=== PATIENT | male | born 1990 | race Caucasian/White ===

== ENCOUNTER 2020-07-16 02:45 | Emergency (ER) | payer OTHER, SELFPAY ==
[2020-07-16 02:30] VITALS: BP 128/86; PULSE 98; RESP 16; TEMP 36.8; O2SAT 97; BMI 23.7
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
--- NOTE | 2020-07-16 03:21 | PC.NURSE ---
STEVE called back and requested another office. they stated pt was screaming and combative
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
[2020-07-16 03:30] VITALS: BP 119/73; PULSE 91; RESP 16; O2SAT 97
--- NOTE | 2020-07-16 04:06 | PC.NURSE ---
pt refused any further vitals at this time. pt stated i have PTSD and cant have that anymore
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
[2020-07-16 04:48] VITALS: BP 126/85; PULSE 89; RESP 15; TEMP -17.7; TEMP 0; O2SAT 97
== END 2020-07-16 04:50 | disposition home or self-care (01) ==
PROVIDERS: Emergency Provider Emergency Medicine; PCP Family Medicine
DX: S01.81XA Laceration without foreign body of other part of head, initial encounter (principal); S00.83XA Contusion of other part of head, initial encounter; S09.92XA Unspecified injury of nose, initial encounter; Y04.2XXA Assault by strike against or bumped into by another person, initial encounter; Y92.414 Local residential or business street as the place of occurrence of the external cause; Z88.0 Allergy status to penicillin; F17.210 Nicotine dependence, cigarettes, uncomplicated
CPT/HCPCS: 70450; 72125; 99283

== ENCOUNTER 2020-07-23 23:04 | Emergency (ER) | payer OTHER, SELFPAY ==
[2020-07-23 23:05] VITALS: BP 158/101; PULSE 121; RESP 16; TEMP 36.8; O2SAT 99; BMI 23.0
--- NOTE | 2020-07-23 23:07 | ECG_ITS ---
APPROVED REPORT Exam: Resting ECG HR:81 bpm ECG Measurements Heart Rate [address] 156 P 80 QRSd 98 QRS 61 QT 342 T 63 QTc 397 Conclusion Normal sinus rhythm Normal ECG Electronically signed by : Sahil Crespo, 07/26/2020 19:34:00
[2020-07-23 23:35] VITALS: BP 115/82; PULSE 89; RESP 17; O2SAT 100
[2020-07-23 23:49] LABS: Microscopic, Urine URINE MICROSCOPIC (MICROSCOPIC)
[2020-07-23 23:53] LABS: Basophils # 0.1 K/mm3 (0-0.2); Basophils % 0.9 % (0.1-2.0); Eosinophils # 0.2 K/mm3 (0.0-0.4); Eosinophils % 1.5 % (0.1-12.0); Hematocrit 47.8 % (42.0-52.0); Hemoglobin 15.7 g/dL (14.1-18.0); Lymphocytes # 4.9 K/mm3 (0.7-4.5); Lymphocytes % 30.2 % (10-50); Mean Corpuscular HGB Conc 32.7 g/dL (31.8-35.4); Mean Corpuscular Hemoglobin 29.7 pg (27.0-31.2); Mean Corpuscular Volume 90.9 fl (80-94); Monocytes # 0.9 K/mm3 (0.1-1.0); Monocytes % 5.3 % (1.7-9.3); Neutrophils % 62.1 % (37.0-80.0); Platelet Count 369 K/mm3 (142-424); Red Blood Count 5.26 M/mm3 (4.60-6.20); Red Cell Distribution Width 13.6 % (11.5-17.5); White Blood Count 16.2 K/mm3 (4.8-10.8)
[2020-07-23 23:55] LABS: Appearance,Urine CLEAR (Clear); Bilirubin,Urine Negative (Negative); Blood, Urine Negative (Negative); Color,Urine YELLOW (Yellow); Glucose,Urine (UA) Negative (Negative); Ketones,Urine Negative (Negative); Leukocyte Esterase,Urine Negative (Negative); Nitrate,Urine Negative (Negative); PH,Urine 5.5 (5.0-8.5); Protein,Urine Negative (Negative); Specific Gravity, Urine >= 1.030 (1.005-1.030); Urobilinogen,Urine 0.2 EU/dl (0.2)
[2020-07-23 23:56] LABS: Chloride 98 mmol/L (98-107); Sodium 141 mmol/L (136-145)
[2020-07-23 23:58] LABS: Alanine Aminotransferase 22 U/L (12-78); Aspartate Amino Transferase 23 U/L (17-59); Blood Urea Nitrogen 18 mg/dl (9-20); Creatinine Clearance Estimated 105 mL/min (50-200); Estimated Glomerular Filt Rate 79 ml/min (>60); GFR (African American) 96 ML/MIN (>60)
--- NOTE | 2020-07-23 23:58 | HMH.EDOD ---
ED Disposition Clinical Impression: Acute delirium Disposition: Home, Self-Care Condition on Discharge: Good Instructions: DI for Substance Use Disorder Additional Instructions: see pcp for follow up Referrals: Neftaly Salazar MD [Primary Care Provider] - - Critical Care Critical Care Time: No Attestation: On 07/23/20, the high probability of a clinically significant, sudden or life threatening deterioration of the following system(s) required my full and direct attention, intervention and personal management. The time I documented below is in addition to time spent performing reported procedures but includes the following listed in this critical care notation. Medical Decision Making - Medical Records Medical records reviewed: Yes: I reviewed the patient's medical records. - Brian Inquiry Pt receiving controlled substance: No Vital Signs: 07/23/20 23:05 07/23/20 23:35 07/24/20 00:05 Temperature 98.2 F Temperature Source Oral Pulse Rate [Left Radial] 121 H 89 82 Respiratory Rate 16 17 15 Blood Pressure [Right Arm] 158/101 H 115/82 121/78 Blood Pressure Mean [Right Arm] 120 93 92 Blood Pressure Source [Right Arm] Automatic Cuff Automatic Cuff Automatic Cuff Blood Pressure Position [Right Arm] Sitting Sitting Sitting 02 Sat by Pulse Oximetry 99 100 99 Oxygen Delivery Method Room Air Room Air Room Air 07/24/20 00:35 Temperature Temperature Source Pulse Rate [Left Radial] 80 Respiratory Rate 16 Blood Pressure [Right Arm] 118/76 Blood Pressure Mean [Right Arm] 90 Blood Pressure Source [Right Arm] Automatic Cuff Blood Pressure Position [Right Arm] Sitting 02 Sat by Pulse Oximetry 97 Oxygen Delivery Method Room Air - Lab Data Lab results reviewed: Yes: I reviewed the patient's lab results. Lab Results 07/23/20 23:05: Urine Color Yellow, Urine Appearance Clear, Urine pH 5.5, Ur Specific [place] >= 1.030, Urine Protein Negative, Urine Glucose (UA) Negative, Urine Ketones Negative, Urine Blood Negative, Urine Nitrate Negative, Urine Bilirubin Negative, Urine Urobilinogen 0.2, Ur Leukocyte Esterase Negative, Urine WBC 3-5, Urine Bacteria 1+, Urine Mucus 2+ 07/23/20 23:05: Urine Opiates Screen Negative, Urine Methadone Screen Negative, Ur Barbituates Screen Negative, Ur Phencyclidine Scrn Negative, Ur Amphetamines Screen Negative, U Benzodiazepines Scrn Negative, Urine Cocaine Screen Negative, U Marijuana (THC) Screen Positive H 07/23/20 23:12: WBC 16.2 H, RBC 5.26, Hgb 15.7, Hct 47.8, MCV 90.9, MCH 29.7, MCHC 32.7, RDW 13.6, Plt Count 369, MPV 8.0, Neut % (Auto) 62.1, Lymph % (Auto) 30.2, [place] % (Auto) 5.3, Eos % (Auto) 1.5, Baso % (Auto) 0.9, Neut # (Auto) 10.0 H, Lymph # (Auto) 4.9 H, [place] # (Auto) 0.9, Eos # (Auto) 0.2, Baso # (Auto) 0.1 07/23/20 23:12: Sodium 141, Potassium 4.0, Chloride 98, Carbon Dioxide 33 H, Anion Gap 14.0, BUN 18, Creatinine 1.10, Estimated Creat Clear 105, Estimated GFR 79, Est GFR ( Amer) 96, Glucose 136 H, Calcium 9.6, Total Bilirubin 0.6, AST 23, ALT 22, Alkaline Phosphatase 86, Troponin I < 0.01, Total Protein 9.1 H, Albumin 5.3 H, Globulin 3.8 H, Albumin/Globulin Ratio 1.4, Salicylates < 1.0 L, Acetaminophen < 10 L 07/23/20 23:12: Plasma/Serum Alcohol < 10 Result diagrams: 07/23/20 23:12 07/23/20 23:12 Orders (Tests/Meds): ORDERS Category Date Time Status XR chest 2V Stat Exams 07/24/20 00:15 Stop Req Complete Blood Count Auto Diff Stat Lab 07/23/20 23:12 Results Troponin I Q3 Lab 07/24/20 03:00 Ordered Troponin I Q3 Lab 07/24/20 06:00 Ordered - ECG Data Tracing #1 Normal Sinus Rhythm: Yes Ischemic changes: non-specific ST-T wave changes Medical Decision Narrative: pt with possible ingestion of drug and is doing better at this time with stable gait and vs and labs ok Overdose HPI - General Chief Complaint: Overdose Stated Complaint: overdose Time Seen by Provider: 07/23/20 23:10 Mode of Arrival: Wheelchair Source of Inform
[2020-07-23 23:59] LABS: Albumin Level 5.3 g/dl (3.5-5.0); Albumin/Globulin Ratio 1.4 (1.1-1.8); Alkaline Phosphatase 86 U/L (38-126); Bilirubin,Total 0.6 mg/dl (0.2-1.3); Calcium 9.6 mg/dl (8.4-10.2); Carbon Dioxide 33 mmol/L (22.0-30.0); Globulin 3.8 g/dL (1.3-3.2); Glucose 136 mg/dl (74-100); Total Protein,Serum 9.1 g/dl (6.3-8.2)
--- NOTE | 2020-07-24 00:01 | PC.NURSE ---
pt ambulated to the bathroom independently. pt is alert and oriented at this time.
[2020-07-24 00:05] VITALS: BP 121/78; PULSE 82; RESP 15; O2SAT 99
[2020-07-24 00:06] LABS: Acetaminophen < 10 ug/ml (10-30); Ethyl Alcohol < 10 mg/dl (0-10); Salicylate < 1.0 mg/dL (2.0-20.0)
[2020-07-24 00:06] LABS: Benzodiazepines Screen,Urine Negative ng/ml (<200)
[2020-07-24 00:07] LABS: Amphetamine/Metha Screen,Urine Negative ng/ml (<1000)
[2020-07-24 00:07] LABS: MANUAL DIFFERENTIAL MANUAL DIFFERENTIAL (MANUAL DIFF)
[2020-07-24 00:08] LABS: Barbiturates Screen,Urine Negative ng/ml (<200); Cannabinoid Screen,Urine Positive ng/ml (<50)
[2020-07-24 00:09] LABS: Cocaine Screen,Urine Negative ng/ml (<300)
[2020-07-24 00:10] LABS: Methadone Screen,Urine Negative ng/ml (<300); Opiate Screen,Urine Negative ng/ml (<300)
[2020-07-24 00:11] LABS: Troponin I < 0.01 ng/ml (0.00-0.034)
[2020-07-24 00:11] LABS: Phencyclidine Screen,Urine Negative ng/ml (<25)
--- NOTE | 2020-07-24 00:13 | PC.NURSE ---
Dr Ledesma attempting to assess patient, pt not ready to be assessed, refusing to get off phone.
[2020-07-24 00:29] LABS: Bacteria,Urine 1+ /lpf; Mucus,Urine 2+ /lpf
[2020-07-24 00:35] VITALS: BP 118/76; PULSE 80; RESP 16; O2SAT 97
[2020-07-24 01:03] VITALS: BP 110/63; PULSE 72; RESP 14; TEMP 36.8; O2SAT 94
[2020-07-24 01:11] LABS: Eosinophils % 2 % (0-3); Lymphocytes % 38 % (10-50); Neutrophils % 59 % (42-76); Total Cells Counted 100
[2020-07-24 01:12] LABS: Platelet Estimate Normal; RBC Morphology Normal
== END 2020-07-24 01:07 | disposition home or self-care (01) ==
PROVIDERS: Emergency Provider Emergency Medicine; PCP Family Medicine
DX: T50.901A Poisoning by unspecified drugs, medicaments and biological substances, accidental (unintentional), initial encounter (principal); R41.0 Disorientation, unspecified; F17.210 Nicotine dependence, cigarettes, uncomplicated; Z88.0 Allergy status to penicillin; R03.0 Elevated blood-pressure reading, without diagnosis of hypertension
CPT/HCPCS: 80053; 80305; 80329; 81001; 84484; 85007; 85025; 93005; 99283

== ENCOUNTER 2020-08-21 17:10 | Emergency (ER) | payer OTHER, SELFPAY ==
--- NOTE | 2020-08-21 17:54 | HMH.EDUTC ---
[facility] [place] Disposition Clinical Impression: Exposure to COVID-19 virus Disposition: Home, Self-Care Condition on Discharge: Good Instructions: Preventing the Spread of Coronavirus Discharge Instructions Additional Instructions: Drink plenty of fluids. Take tylenol for pain or fever. Return if you begin to have difficulty breathing. Follow up with your regular doctor. GO TO THE ER FOR ANY WORSENING SYMPTOMS Referrals: Neftaly Salazar MD [Primary Care Provider] - Time of Disposition: 17:55 Medical Decision Making - Medical Records Medical records reviewed: No: I reviewed the patient's medical records. - Brian Inquiry Pt receiving controlled substance: No Vital Signs: 08/21/20 17:58 08/21/20 18:23 Temperature 98.4 F 98.1 F Temperature Source Oral Oral Pulse Rate 84 Pulse Rate [Right] 88 Respiratory Rate 16 16 Blood Pressure 120/69 Blood Pressure [Right Arm] 121/75 Blood Pressure Mean [Right Arm] 90 Blood Pressure Source [Right Arm] Automatic Cuff Blood Pressure Position [Right Arm] Sitting 02 Sat by Pulse Oximetry 98 Oxygen Delivery Method Room Air Orders (Tests/Meds): ORDERS Category Date Time Status Covid-19 Nasal PCR ([facility]) Routine Lab 08/21/20 17:45 Received [facility] [place] HPI - General Stated complaint: covid test Time Seen by Provider: 08/21/20 17:54 - History of Present Illness Provider Complaint: He states that he was exposed to covid 2 days ago. He denies any symptoms so far. - Related Data Previous Rx's Medication Instructions Recorded Cyclobenzaprine HCl [Flexeril 10mg 10 mg PO TID PRN #20 tablet 03/30/18 tablet] Etodolac [Etodolac 200mg Cap] 200 mg PO Q6HP PRN #20 cap 03/30/18 Allergies Allergy/AdvReac Type Severity Reaction Status Date / Time Penicillins Allergy Verified 08/21/20 18:02 [facility] History - Hepatitis A Screen Attestation statement:: This patient has been screened for Hepatitis A risk factors. I have reviewed the patient's past medical history: Yes - Social History Smoking Status: Current every day smoker Tobacco Type: cigarettes Alcohol Intake: never ROS Obtained: Yes All systems reviewed & no additional complaints - Constitutional Constitutional: Reports system reviewed and no additional complaints, except as docu - Eyes Eyes: Reports system reviewed and no additional complaints, except as docu - ENT Ears, Nose, Mouth, and Throat: Reports system reviewed and no additional complaints, except as docu - Cardiovascular Cardiovascular: Reports system reviewed and no additional complaints, except as docu - Respiratory Respiratory: Reports system reviewed and no additional complaints, except as docu - Gastrointestinal Gastrointestingal: Reports: system reviewed and no additional complaints, except as docu Physical Exam - General General appearance: alert, in no apparent distress - Head Head exam: atraumatic, normocephalic, normal inspection - Eye Eye exam: Present: normal appearance, PERRL, EOMI - ENT ENT exam: Present: normal exam, normal oropharynx, mucous membranes moist, TM's normal bilaterally, normal external ear exam - Neck Neck exam: Present: normal inspection, full ROM, trachea midline. Absent: meningismus, lymphadenopathy - Chest Chest inspection: Present: normal inspection, symmetric chest wall rise. Absent: tenderness - Respiratory Respiratory exam: Present: normal lung sounds bilaterally. Absent: respiratory distress - Cardiovascular Cardiovascular exam: Present: regular rate, normal rhythm. Absent: JVD - Abdominal Exam Abdominal exam: Present: soft, normal bowel sounds. Absent: distention, tenderness, guarding - Extremities Exam Extremities exam: Present: normal inspection, full ROM, normal capillary refill. Absent: calf tenderness - Back Exam Back exam: Present: normal inspection. Absent: tenderness - Neurological Exam Neurological exam: Present: alert, oriented
[2020-08-21 17:58] VITALS: BP 121/75; PULSE 88; RESP 16; TEMP 36.9; O2SAT 98; BMI 23.7
[2020-08-21 18:23] VITALS: BP 120/69; PULSE 84; RESP 16; TEMP 36.7
== END 2020-08-21 18:24 | disposition home or self-care (01) ==
PROVIDERS: Emergency Provider Nurse Practitioner Family; PCP Family Medicine
DX: Z20.822 Contact with and (suspected) exposure to COVID-19 (principal); Z88.0 Allergy status to penicillin; F17.210 Nicotine dependence, cigarettes, uncomplicated
CPT/HCPCS: 99202; G0463; U0003

== ENCOUNTER 2021-04-28 23:16 | Emergency (ER) | payer OTHER, SELFPAY ==
[2021-04-28 23:34] VITALS: BP 128/70; PULSE 79; RESP 18; TEMP 36.7; O2SAT 99; BMI 25.1
--- NOTE | 2021-04-28 23:37 | ECG_ITS ---
APPROVED REPORT Exam: Resting ECG HR:72 bpm ECG Measurements Heart Rate 72 AXES [place] 176 P 68 QRSd 96 QRS 71 QT 368 T 70 QTc 402 Conclusion Normal sinus rhythm RSR' or QR pattern in V1 suggests right ventricular conduction delay Borderline ECG Electronically signed by : Sahil Crespo MD 05/01/2021 17:30:46
[2021-04-29 00:01] LABS: Alanine Aminotransferase 14 U/L (12-78); Albumin Level 4.2 g/dl (3.5-5.0); Albumin/Globulin Ratio 1.4 (1.1-1.8); Alkaline Phosphatase 84 U/L (38-126); Anion Gap 9.3 mEq/L (5-15); Aspartate Amino Transferase 24 U/L (17-59); Bilirubin,Total 0.2 mg/dl (0.2-1.3); Blood Urea Nitrogen 15 mg/dl (9-20); Calcium 8.9 mg/dl (8.4-10.2); Carbon Dioxide 30 mmol/L (22.0-30.0); Chloride 103 mmol/L (98-107); Creatinine Clearance Estimated 156 mL/min (50-200); Estimated Glomerular Filt Rate 114 ml/min (>60); GFR (African American) 137 ML/MIN (>60); Globulin 2.9 g/dL (1.3-3.2); Glucose 96 mg/dl (74-100); Potassium 4.3 mmoL/L (3.5-5.1); Sodium 138 mmol/L (136-145); Total Protein,Serum 7.1 g/dl (6.3-8.2)
--- NOTE | 2021-04-29 00:01 | HMH.EDBACK ---
ED Disposition Clinical Impression: Lumbar pain, Cervical pain (neck) Thoracic back pain Qualifiers: Chronicity: acute Back pain laterality: unspecified Qualified Code(s): M54.6 - Pain in thoracic spine Disposition: Home, Self-Care Condition on Discharge: Good Instructions: DI for Low Back Pain Additional Instructions: use meds and see pcp for follow up Prescriptions: predniSONE [Prednisone 20mg Tab] 20 mg PO BID #10 tab Transmission Status: Pending to [id number] Ketorolac Tromethamine [Toradol 10mg tablet] 10 mg PO Q6HP PRN #10 tab MDD 40mg/day PRN Reason: Moderate To Severe Pain Transmission Status: Pending to [id number] Referrals: Neftaly Salazar MD [Primary Care Provider] - - Critical Care Critical Care Time: No Attestation: On 04/28/21, the high probability of a clinically significant, sudden or life threatening deterioration of the following system(s) required my full and direct attention, intervention and personal management. The time I documented below is in addition to time spent performing reported procedures but includes the following listed in this critical care notation. Medical Decision Making - Medical Records Medical records reviewed: Yes: I reviewed the patient's medical records. - Brian Inquiry Pt receiving controlled substance: No Vital Signs: 04/28/21 23:34 04/29/21 00:48 04/29/21 01:00 Temperature 98.1 F Temperature Source Oral Pulse Rate 62 60 Pulse Rate [Apical] 79 Respiratory Rate 18 Blood Pressure 115/72 112/58 L Blood Pressure [Right Arm] 128/70 Blood Pressure Mean 81 71 Blood Pressure Mean [Right Arm] 89 Blood Pressure Source [Right Arm] Automatic Cuff Blood Pressure Position [Right Arm] Sitting 02 Sat by Pulse Oximetry 99 99 98 Oxygen Delivery Method Room Air - Lab Data Lab results reviewed: Yes: I reviewed the patient's lab results. Lab Results 04/28/21 23:30: WBC 7.4, RBC 4.84, Hgb 14.4, Hct 43.0, MCV 88.8, MCH 29.7, MCHC 33.4, RDW 13.2, Plt Count 232, MPV 7.5, Neut % (Auto) 62.8, Lymph % (Auto) 30.8, [place] % (Auto) 4.5, Eos % (Auto) 1.5, Baso % (Auto) 0.4, Neut # (Auto) 4.6, Lymph # (Auto) 2.3, [place] # (Auto) 0.3, Eos # (Auto) 0.1, Baso # (Auto) 0.0, ESR 6 04/28/21 23:30: Sodium 138, Potassium 4.3, Chloride 103, Carbon Dioxide 30, Anion Gap 9.3, BUN 15, Creatinine 0.80, Estimated Creat Clear 156, Estimated GFR 114, Est GFR ( Amer) 137, Glucose 96, Calcium 8.9, Total Bilirubin 0.2, AST 24, ALT 14, Alkaline Phosphatase 84, C-Reactive Protein 6.7 H, Total Protein 7.1, Albumin 4.2, Globulin 2.9, Albumin/Globulin Ratio 1.4 04/28/21 23:30: Procalcitonin < 0.030 Result diagrams: 04/28/21 23:30 04/28/21 23:30 Orders (Tests/Meds): ED MEDICATIONS Discontinued Medications Generic Name Dose Route Start Last Admin Trade Name Freq PRN Reason Stop Dose Admin Iopamidol 100 ml 04/29/21 00:30 04/29/21 00:31 Iopamidol-370 (76%);100ml Bottle IV 04/29/21 00:31 100 ml ONCE ONE Administration Ketorolac Tromethamine 30 mg 04/28/21 23:43 04/28/21 23:44 Ketorolac 30mg/Ml Vial IV 04/28/21 23:44 30 mg ONCE ONE Administration Methylprednisolone Sodium Succinate 125 mg 04/28/21 23:43 04/28/21 23:44 Methylprednisolone Sod Succ 125mg Vial IV 04/28/21 23:44 125 mg ONCE ONE Administration Sodium Chloride 10 ml 04/29/21 00:30 04/29/21 00:31 Sodium Chloride 0.9% 10ml Syr (Rad Only) IV 04/29/21 00:31 10 ml ONCE ONE Administration - CT Data CT Scan: C-Spine, T-Spine, L-Spine Time Received: 02:[address] Reviewed: Yes: I have viewed the radiologist's interpretation Preliminary Findings: No Fracture Seen Medical Decision Narrative: no spinal abn on ct - Back Pain HPI - General Chief Complaint: Back Pain/Injury Stated Complaint: [place] Back pain Time Seen by Provider: 04/29/21 00:00 Mode of Arrival: Ambulatory Source of Information: Patient, Medical Record Li
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
--- NOTE | 2021-04-29 00:06 | CT_ITS ---
PROCEDURE INFORMATION: Exam: CT Lumbar Spine With Contrast Exam date and time: 04/29/2021 12:06 AM Age: 30 years old Clinical indication: Injury or trauma; Other: Wrestling with and now c spine, t spine and L spine pain; Sprain or strain, lumbar ligaments; Injury date: 04/28/2021; Additional info: Back pain, prev herniated disc TECHNIQUE: Imaging protocol: Computed tomography images of the lumbar spine with intravenous contrast. Radiation optimization: All CT scans at this facility use at least one of these dose optimization techniques: automated exposure control; mA and/or kV adjustment per patient size (includes targeted exams where dose is matched to clinical indication); or iterative reconstruction. 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 No acute lumbar spine fracture. No spondylolisthesis. L1-L2: No significant disc protrusion. No severe spinal canal stenosis. No significant neural foraminal narrowing. L2-L3: No significant disc protrusion. No severe spinal canal stenosis. No significant neural foraminal narrowing. L3-L4: Disc bulging. Mild spinal canal and bilateral neural foraminal stenosis. L4-L5: Disc bulging. Mild facet hypertrophy and ligamentum flavum thickening. Mild to moderate spinal canal stenosis with lateral recess effacement and possible impingement of the descending L5 nerve roots. Moderate right and [id number] left neural foraminal stenosis. L5-S1: Transitional level. Mild effacement of the lateral recesses with slight abutment of the descending S1 nerve roots. No spinal canal stenosis. No neural foraminal stenosis. However, there is hypertrophic spurring in the right extraforaminal zone due to the transitional anatomy, which abuts the right L5 nerve root peripherally. Sacrum/coccyx: Chronic cortical irregularity of the sacrum at the junction of the S3 and S4 segments suggests remote trauma. Soft tissues: Unremarkable. IMPRESSION: 1. No acute lumbar spine fracture or traumatic malalignment. 2. Transitional anatomy at the lumbosacral junction. 3. Degenerative changes as described.
[2021-04-29 00:12] LABS: C-Reactive Protein 6.7 mg/L (0-4)
[2021-04-29 00:22] LABS: Basophils % 0.4 % (0.1-2.0); Eosinophils # 0.1 K/mm3 (0.0-0.4); Eosinophils % 1.5 % (0.1-12.0); Hemoglobin 14.4 g/dL (14.1-18.0); Lymphocytes # 2.3 K/mm3 (0.7-4.5); Lymphocytes % 30.8 % (10-50); Mean Corpuscular HGB Conc 33.4 g/dL (31.8-35.4); Mean Corpuscular Hemoglobin 29.7 pg (27.0-31.2); Mean Corpuscular Volume 88.8 fl (80-94); Mean Platelet Volume 7.5 fl (7.4-10.4); Monocytes # 0.3 K/mm3 (0.1-1.0); Monocytes % 4.5 % (1.7-9.3); Neutrophils # 4.6 K/mm3 (1.8-7.8); Neutrophils % 62.8 % (37.0-80.0); Platelet Count 232 K/mm3 (142-424); Procalcitonin < 0.030 ng/mL (0.0-2.0); Red Blood Count 4.84 M/mm3 (4.60-6.20); Red Cell Distribution Width 13.2 % (11.5-17.5); White Blood Count 7.4 K/mm3 (4.8-10.8)
[2021-04-29 00:24] LABS: Erythrocyte Sedimentation Rate 6 mm/hr (0-15)
[2021-04-29 00:48] VITALS: BP 115/72; PULSE 62; O2SAT 99
[2021-04-29 01:00] VITALS: BP 112/58; PULSE 60; O2SAT 98
[2021-04-29 03:06] VITALS: BP 114/64; PULSE 78; RESP 16; TEMP 36.8; O2SAT 98
== END 2021-04-29 03:29 | disposition home or self-care (01) ==
PROVIDERS: Emergency Provider Emergency Medicine; PCP Family Medicine
DX: M54.2 Cervicalgia (principal); M54.50 Low back pain, unspecified; M54.6 Pain in thoracic spine; X50.1XXA Overexertion from prolonged static or awkward postures, initial encounter; Y92.019 Unspecified place in single-family (private) house as the place of occurrence of the external cause; F17.210 Nicotine dependence, cigarettes, uncomplicated; Z88.0 Allergy status to penicillin
CPT/HCPCS: 72126; 72129; 72132; 80053; 84145; 85025; 85651; 86140; 93005; 96375; 99282; Q9967